=== PATIENT | female | born 1995 | race Caucasian/White ===

== ENCOUNTER → 2020-04-21 09:44 | Outpatient (CLI) | payer OTHER, SELFPAY ==
--- NOTE | 2020-04-21 | DI.US.S_ITS ---
PROCEDURE: US PELVIC COMPLETE INDICATIONS: MENORRHAGIA, pelvic pain TECHNIQUE: Real-time scanning was performed of the pelvic organs, with image documentation. Additional endovaginal scanning was necessary due to incomplete visualization of the adnexal and endometrial structures by transabdominal scanning. COMPARISON: None. FINDINGS: Transabdominal scanning: Limited scanning through the kidneys shows no hydronephrosis. No pathologic free abdominal or pelvic fluid. Endovaginal scanning: Uterus: Uterus is normal in size at 8.2 x 3.1 x 4.5 cm. The endometrium measures 5.7 mm in combined thickness. Ovaries: Ovaries measure 4.8 x 2.3 x 2.8 cm on the right and 3.1 x 1.6 x 1.6 cm on the left. Doppler assessment demonstrates bilateral intrinsic ovarian blood flow. IMPRESSION: No source for menorrhagia and pelvic pain identified. Dictated by: Jey NG Interpreted: Moses Castaneda MD on 04/21/2020 at 10:41 Approved by: Moses Castaneda M.D. on 04/21/2020 at 11:07
== END ==
PROVIDERS: Referring Provider Physician Assistant; Visit Provider Physician Assistant
DX: N92.0 Excessive and frequent menstruation with regular cycle (principal); R10.2 Pelvic and perineal pain
CPT/HCPCS: 76830; 76856